=== PATIENT | female | born 1965 | race Caucasian/White ===

== ENCOUNTER 2020-10-21 21:12 | Emergency (ER) | payer BC, SELFPAY ==
--- NOTE | ~2020-10-21 | XR_ITS ---
EXAMINATION: XR SHOULDER, RIGHT CLINICAL INFORMATION: Fall COMPARISON: None TECHNIQUE: Three views of the right shoulder. FINDINGS: No acute fracture or dislocation. Previous partial distal clavicular resection/Pedro Pablo procedure suspected. Unremarkable glenohumeral joint. Soft tissues unremarkable. XR/XR shoulder RT min 2V IMPRESSION: No acute findings
--- NOTE | ~2020-10-21 | XR_ITS ---
EXAMINATION: XR RIGHT HAND: 3 VIEWS CLINICAL INFORMATION: Fall COMPARISON: None TECHNIQUE: PA, oblique and lateral views FINDINGS: No acute fracture or dislocation. Joint spaces and articular surfaces are maintained. Mild degenerative changes of the first CMC. Soft tissues unremarkable without evidence of radiopaque foreign body. XR/XR hand wrist RT IMPRESSION: No acute fracture or dislocation.
--- NOTE | ~2020-10-21 | CT_ITS ---
EXAMINATION: CT HEAD WITHOUT CONTRAST CT CERVICAL SPINE WITHOUT CONTRAST CLINICAL INFORMATION: Fall. COMPARISON: None. TECHNIQUE: Imaging was performed from the skull base to vertex without intravenous administration of contrast. In addition, helical noncontrast CT imaging was acquired through the cervical spine and source images were reviewed along with axial reconstructions and sagittal and coronal MPRs. [This CT examination was performed using dose optimization techniques as appropriate, variously including the following: *Automated exposure control *Adjustment of mA and/or kV according to patient size (this includes techniques or standardized protocols for targeted exams where dose is matched to indication/reason for exam; i.e. extremities or head) *Use of iterative reconstruction technique] DLP: 859 mGy-cm FINDINGS: HEAD: No intracranial mass, hemorrhage, or midline shift is visualized. The ventricles and sulci are proportional. No extra-axial collections are identified. The paranasal sinuses and mastoid air cells are well aerated. CERVICAL SPINE: There is no evidence of acute cervical spine fracture. Vertebral bodies remain normal in height. Cervical vertebrae have normal alignment. Status post fusion with anterior orthopedic plate and screw C5-C7. 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 No pre- or paravertebral soft tissue abnormality is identified. Limited assessment of the lung apices is unremarkable. CT/CT head/brain wo con IMPRESSION: 1. No acute intracranial pathology. 2. No CT evidence of acute cervical spine fracture or traumatic subluxation
--- NOTE | ~2020-10-21 | CT_ITS ---
EXAMINATION: CT HEAD WITHOUT CONTRAST CT CERVICAL SPINE WITHOUT CONTRAST CLINICAL INFORMATION: Fall. COMPARISON: None. TECHNIQUE: Imaging was performed from the skull base to vertex without intravenous administration of contrast. In addition, helical noncontrast CT imaging was acquired through the cervical spine and source images were reviewed along with axial reconstructions and sagittal and coronal MPRs. [This CT examination was performed using dose optimization techniques as appropriate, variously including the following: *Automated exposure control *Adjustment of mA and/or kV according to patient size (this includes techniques or standardized protocols for targeted exams where dose is matched to indication/reason for exam; i.e. extremities or head) *Use of iterative reconstruction technique] DLP: 859 mGy-cm FINDINGS: HEAD: No intracranial mass, hemorrhage, or midline shift is visualized. The ventricles and sulci are proportional. No extra-axial collections are identified. The paranasal sinuses and mastoid air cells are well aerated. CERVICAL SPINE: There is no evidence of acute cervical spine fracture. Vertebral bodies remain normal in height. Cervical vertebrae have normal alignment. Status post fusion with anterior orthopedic plate and screw C5-C7. 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 No pre- or paravertebral soft tissue abnormality is identified. Limited assessment of the lung apices is unremarkable. CT/CT cervical spine wo con IMPRESSION: 1. No acute intracranial pathology. 2. No CT evidence of acute cervical spine fracture or traumatic subluxation
[2020-10-21 21:48] VITALS: BP 151/109; PULSE 80; RESP 20; O2SAT 98; BMI 25.4
[2020-10-22 00:49] VITALS: BP 133/72; PULSE 74; RESP 15; TEMP 36.4; O2SAT 100
--- NOTE | 2020-10-22 00:57 | ED.GENADULT ---
HPI - General Adult General Chief complaint: Fall <Martha Doty MD - Last Filed: 10/22/20 07:20> Stated complaint: Fall <Martha Doty MD - Last Filed: 10/22/20 07:20> Time Seen by Provider: 10/22/20 00:57 <Martha Doty MD - Last Filed: 10/22/20 07:20> Source: patient <Martha Doty MD - Last Filed: 10/22/20 07:20> Mode of arrival: ambulatory <Martha Doty MD - Last Filed: 10/22/20 07:20> Limitations: no limitations <Martha Doty MD - Last Filed: 10/22/20 07:20> History of Present Illness HPI narrative: Patient comes emergency room complaining <Martha Doty MD - Last Filed: 10/22/20 07:20> Related Data Home medications: Previous Rx's Medication Instructions Recorded acetaminophen 500 mg capsule 500 mg PO Q6H PRN #14 cap 10/22/20 cyclobenzaprine 10 mg tablet 10 mg PO TID PRN #7 tab 10/22/20 <Martha Doty MD - Last Filed: 10/22/20 07:20> Allergies/adverse reactions: Allergies Allergy/AdvReac Type Severity Reaction Status Date / Time ampicillin [Ampicillin] Allergy Severe ANAPHYLAXIS Unverified 11/05/19 14:50 TO TOTACILLIN azithromycin [From ZITHROMAX] Allergy Severe ANAPHYLAXIS Unverified 11/05/19 14:50 erythromycin base Allergy Unknown UNKNOWN Unverified 11/05/19 14:50 [ERYTHROMYCIN BASE] ciprofloxacin [From CIPRO] AdvReac Unknown NAUSEA Unverified 11/05/19 14:50 From CEFTIN Allergy Severe SWOLLEN Uncoded 11/05/19 14:50 TONGUE From DEMEROL Allergy Severe ANAPHYLAXIS Uncoded 11/05/19 14:50 From KEFLEX Allergy Severe SWOLLEN Uncoded 11/05/19 14:50 TONGUE From CIPRO AdvReac Unknown NAUSEA Uncoded 11/05/19 14:50 From REGLAN AdvReac Unknown LOCK JAW Uncoded 11/05/19 14:50 <Martha Doty MD - Last Filed: 10/22/20 07:20> PMFSH Social History Social History: Social History Advance Directives: No Advance Directives Information Provided: No Patient : No <Martha Doty MD - Last Filed: 10/22/20 07:20> Physical Exam Vital Signs: Vital Signs: Last Vital Signs Temp 97.8 F 10/22/20 04:37 Pulse 65 10/22/20 04:37 Resp 16 10/22/20 04:37 BP 138/75 10/22/20 04:37 Pulse Ox 98 10/22/20 04:37 Body Mass Index 25.4 <Martha Doty MD - Last Filed: 10/22/20 07:20> Vital Signs: Last Vital Signs Temp 97.8 F 10/22/20 04:37 Pulse 65 10/22/20 04:37 Resp 16 10/22/20 04:37 BP 138/75 10/22/20 04:37 Pulse Ox 98 10/22/20 04:37 Body Mass Index 25.4 <LINO Rodrigues-KIERSTEN - Last Filed: 10/23/20 21:04> Discharge Plan Discharge Clinical Impression: Fall, Multiple contusions <Martha Doty MD - Last Filed: 10/22/20 07:20> Patient Disposition: Home, Self-Care <Martha Doty MD - Last Filed: 10/22/20 07:20> Instructions: Musculoskeletal Pain (ED) <Martha Doty MD - Last Filed: 10/22/20 07:20> Additional Instructions: Please follow-up with your primary care physician tomorrow. If you have any worsening or new symptoms, please return to the emergency room or call 911 <Martha Doty MD - Last Filed: 10/22/20 07:20> Prescriptions: New cyclobenzaprine 10 mg tablet 10 mg PO TID PRN (Reason: muscle spasm) Qty: 7 RF: 0 acetaminophen 500 mg capsule 500 mg PO Q6H PRN (Reason: pain) Qty: 14 RF: 0 <Martha Doty MD - Last Filed: 10/22/20 07:20> Interventions: ED Discharge Assessment Last Done: 10/22/20 05:55 <Martha Doty MD - Last Filed: 10/22/20 07:20> Discharge Date/Time: 10/22/20 06:02 <Martha Doty MD - Last Filed: 10/22/20 07:20>
--- NOTE | 2020-10-22 02:05 | PC.NURSE ---
Notified provider pt is awaiting to be seen.
--- NOTE | 2020-10-22 02:27 | PC.NURSE ---
pt oob to bathroom.
[2020-10-22 02:32] VITALS: BP 128/60; PULSE 81; RESP 24; TEMP 36.7; O2SAT 100
--- NOTE | 2020-10-22 03:07 | PC.NURSE ---
PT UPSET OVER LONG WAIT TIME AND NOT HAVING SEEN PROVIDER. RN AT BEDSIDE, OFFERED ICE & TYLENOL. PT AGREEABLE TO THIS PLAN. MD AWARE OF XRAY RESULTS, AND PT CONCERNS.
[2020-10-22] MEDS: Acetaminophen 325 MG TABLET 650 MG PO (03:10)
--- NOTE | 2020-10-22 03:14 | PC.NURSE ---
pt given ice back and medicated per apr.
--- NOTE | 2020-10-22 03:23 | ED.FALL ---
HPI - Fall General Chief Complaint: Fall Stated Complaint: Fall Time Seen by Provider: 10/22/20 00:57 Source: patient Mode of arrival: ambulatory Limitations: no limitations History of Present Illness HPI Narrative: Patient comes to the emergency room complaining of a fall. Earlier today she was walking out of the vet's office with her dog, walking down the ramp. Patient states it was very slippery and she landed on her right side. Patient states she might have hit her head, complaining of acute on chronic neck pain, complaining of new right shoulder pain, new right wrist pain. Patient denies loss of consciousness, patient denies being on blood thinners Related Data Previous Rx's Medication Instructions Recorded acetaminophen 500 mg capsule 500 mg PO Q6H PRN #14 cap 10/22/20 cyclobenzaprine 10 mg tablet 10 mg PO TID PRN #7 tab 10/22/20 Allergies Allergy/AdvReac Type Severity Reaction Status Date / Time ampicillin [Ampicillin] Allergy Severe ANAPHYLAXIS Unverified 11/05/19 14:50 TO TOTACILLIN azithromycin [From ZITHROMAX] Allergy Severe ANAPHYLAXIS Unverified 11/05/19 14:50 erythromycin base Allergy Unknown UNKNOWN Unverified 11/05/19 14:50 [ERYTHROMYCIN BASE] ciprofloxacin [From CIPRO] AdvReac Unknown NAUSEA Unverified 11/05/19 14:50 From CEFTIN Allergy Severe SWOLLEN Uncoded 11/05/19 14:50 TONGUE From DEMEROL Allergy Severe ANAPHYLAXIS Uncoded 11/05/19 14:50 From KEFLEX Allergy Severe SWOLLEN Uncoded 11/05/19 14:50 TONGUE From CIPRO AdvReac Unknown NAUSEA Uncoded 11/05/19 14:50 From REGLAN AdvReac Unknown LOCK JAW Uncoded 11/05/19 14:50 Review of Systems Review of Systems: Constitutional : No Weight loss, No Fever, No Chills, No Night Sweats, No Fatigue, No Malaise ENT/Mouth : No Hearing loss, No Ear Pain, No Nasal Congestion, No Sinus Pain, No Hoarseness, No sore throat, No Rhinorrhea, No Swallowing Difficulty Eyes: No Eye Pain, No Swelling, No Redness, No Foreign Body, No Discharge, No Vision Changes Cardiovascular : No Chest Pain, No SOB, No Dyspnea on Exertion, No Orthopnea, No Edema, No Palpitations Respiratory : No Cough, No Sputum, No Wheezing, No Smoke Exposure, No Dyspnea Gastrointestinal : No Nausea, No Vomiting, No Diarrhea, No Constipation, No abdominal Pain, No Hematochezia, No Melena Genitourinary : no irregular bleeding, No Dysuria, No Urinary Frequency, No Hematuria, No Urinary Incontinence, No Urgency, No Flank Pain, No Urinary Flow Changes, No Hesitancy Musculoskeletal : Complaining of right shoulder, right wrist pain, complaining acute on chronic neck pain, No Myalgias, No Joint Swelling Skin : No Skin Lesions, No rash Neuro : No Weakness, No Numbness, No Paresthesias, No Loss of Consciousness, No Dizziness, No Headache Psych : No Anxiety/Panic, No Depression, No SI/HI/AH/VH, No Social Issues, Heme/Lymph: No Bruising, No Bleeding,No Lymphadenopathy Endocrine : No Polyuria, No Polydipsia, No Temperature Intolerance [facility] Social History Social History Advance Directives: No Advance Directives Information Provided: No Patient : No Physical Exam Vital Signs: Vital Signs: Last Vital Signs Temp 97.8 F 10/22/20 04:37 Pulse 65 10/22/20 04:37 Resp 16 10/22/20 04:37 BP 138/75 10/22/20 04:37 Pulse Ox 98 10/22/20 04:37 Body Mass Index 25.4 Const: Other: Appearance: Alert. Oriented X3. No acute distress. Eyes: Pupils equal, round and reactive to light. ENT: Pharynx normal. Neck: Normal inspection. Pain to palpation especially over the right side, no midline tenderness, no palpable above CVS: Normal heart rate and rhythm. Pulses normal. Normal S1 and S2 Respiratory: No respiratory distress. Breath sounds normal. No Wheezing. No rales Abdomen: Soft and nontender. No rigidity. No distention. good BS x4 Skin: Skin warm and dry. Normal skin color. Normal skin turgor. Extremities: Ecchymosis over the right shoulder, no obvious effusion or deformity. Pain to palpation over the entire shoulder joint. Pain to palpation over the wrist, especially ulnar aspect, no elbow pain. Neuro: Oriented X 3. No motor deficit. No sensory deficit. Moving all extermities. No slurred speech. Course Course Course Narrative: Patient's CT scan of head and neck showed no acute abnormalities, x-ray negative MDM - Fall Imaging Data Head and neck CT: Radiologist's impression: [address] [address] [address] Scan Report Signed Patient: Darlin Villegas MR#: [id number] : 1965 Acct:[id number] Age/Sex: 54 / F ADM Date: 10/21/20 Loc: HO.ED Attending Dr: Ordering Physician: Martha Doty MD Date of Service: 10/22/20 Procedure(s): CT cervical spine wo con Accession Number(s): [id number] cc: Martha Doty MD~ EXAMINATION: CT HEAD WITHOUT CONTRAST CT CERVICAL SPINE WITHOUT CONTRAST CLINICAL INFORMATION: Fall.? COMPARISON: None. TECHNIQUE: Imaging was performed from the skull base to vertex without intravenous administration of contrast. In addition, helical noncontrast CT imaging was acquired through the cervical spine and source images were reviewed along with axial reconstructions and sagittal and coronal MPRs. [This CT examination was performed using dose optimization techniques as appropriate, variously including the following: *Automated exposure control *Adjustment of mA and/or kV according to patient size (this includes techniques or standardized protocols for targeted exams where dose is matched to indication/reason for exam; i.e. extremities or head) *Use of iterative reconstruction technique] DLP: 859 mGy-cm FINDINGS: HEAD: No intracranial mass, hemorrhage, or midline shift is visualized. The ventricles and sulci are proportional. No extra-axial collections are identified. The paranasal sinuses and mastoid air cells are well aerated. CERVICAL SPINE: There is no evidence of acute cervical spine fracture. Vertebral bodies remain normal in height. Cervical vertebrae have normal alignment. Status post fusion with anterior orthopedic plate and screw C5-C7. 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 No pre- or paravertebral soft tissue abnormality is identified. Limited assessment of the lung apices is unremarkable. CT/CT cervical spine wo con IMPRESSION: 1. No acute intracranial pathology. 2. No CT evidence of acute cervical spine fracture or traumatic subluxation Shoulder, hand, wrist x-ray: Radiologist's impression: No acute fracture or dislocation. Previous partial distal clavicular resection/Pedro Pablo procedure suspected. Unremarkable glenohumeral joint. Soft tissues unremarkable. XR/XR shoulder RT min 2V IMPRESSION: No acute findings No acute fracture or dislocation. Joint spaces and articular surfaces are maintained. Mild degenerative changes of the first CMC. Soft tissues unremarkable without evidence of radiopaque foreign body.? XR/XR hand wrist RT IMPRESSION: No acute fracture or dislocation.? ECG Data Attestation: I personally reviewed and interpreted this ECG as follows: Discharge Plan Discharge Clinical Impression: Fall, Multiple contusions Patient Disposition: Home, Self-Care Instructions: Musculoskeletal Pain (ED) Additional Instructions: Please follow-up with your primary care physician tomorrow. If you have any worsening or new symptoms, please return to the emergency room or call 911 Prescriptions: New cyclobenzaprine 10 mg tablet 10 mg PO TID PRN (Reason: muscle spasm) Qty: 7 RF: 0 acetaminophen 500 mg capsule 500 mg PO Q6H PRN (Reason: pain) Qty: 14 RF: 0
[2020-10-22 04:37] VITALS: BP 138/75; PULSE 65; RESP 16; TEMP 36.6; O2SAT 98
--- NOTE | 2020-10-22 05:50 | PC.NURSE ---
pt requesting to be discharge, provider is aware.
== END 2020-10-22 06:02 | disposition home or self-care (01) ==
PROVIDERS: Emergency Provider Emergency Medicine; PCP Internal Medicine
DX: S40.011A Contusion of right shoulder, initial encounter (principal); W10.2XXA Fall (on)(from) incline, initial encounter; Y93.K1 Activity, walking an animal; Y92.238 Other place in hospital as the place of occurrence of the external cause; Y99.9 Unspecified external cause status; M25.531 Pain in right wrist; G89.29 Other chronic pain; M54.2 Cervicalgia
CPT/HCPCS: 29130; 70450; 72125; 73030; 73110; 73130; 99284

== ENCOUNTER 2021-08-07 17:15 | Emergency (ER) | payer BC, SELFPAY ==
--- NOTE | ~2021-08-07 | CT_ITS ---
EXAMINATION: CT ABDOMEN AND PELVIS WITHOUT CONTRAST CLINICAL INFORMATION: Lower abdominal pain with history of diverticulitis. COMPARISON: CT abdomen pelvis 02/16/2012. TECHNIQUE: Multidetector volumetric imaging was performed from the superior aspect of the liver through the pubic symphysis. Sagittal and coronal reformatted images were obtained on the technologist's workstation. This CT examination was performed using dose optimization techniques as appropriate, variously including the following: *Automated exposure control *Adjustment of mA and/or kV according to patient size (this includes techniques or standardized protocols for targeted exams where dose is matched to indication/reason for exam; i.e. extremities or head) *Use of iterative reconstruction technique DLP: 597 mGy-cm FINDINGS: LUNG BASES: The visualized lung bases are unremarkable. LIVER, GALLBLADDER, AND BILIARY TREE: The liver is normal in size, shape, and attenuation. No focal hepatic lesion or biliary ductal dilatation is present. The gallbladder is unremarkable with no evidence of radiopaque gallstones, gallbladder wall thickening, or obvious pericholecystic inflammatory changes. PANCREAS: Unremarkable. SPLEEN: Unremarkable. ADRENAL GLANDS: Unremarkable. KIDNEYS AND URETERS: The kidneys are normal in size, shape, and attenuation. No hydronephrosis, hydroureter, or calculi seen. No perinephric stranding. BLADDER: Unremarkable. GASTROINTESTINAL TRACT: There is scattered stool and gas seen throughout the colon without significant distention. There are surgical jignesh in the right lower quadrant from previous intervention. Appendix is likely surgically absent. The small bowel loops are normal caliber. The stomach is nondistended. There is an extrarenal right kidney pelvis. ABDOMINAL WALL: No significant hernia is appreciated. LYMPH NODES: Normal. VASCULAR: Unremarkable. PELVIC VISCERA: The uterus is anteverted and appears unremarkable. There is no adnexal mass or free fluid seen. OSSEOUS STRUCTURES: There are degenerative disc changes L2-L3, L3-for L4-L5 disc levels. No aggressive lytic or sclerotic process seen. CT/CT abdomen pelvis wo con IMPRESSION: No acute intra-abdominal process seen. There are postsurgical changes in right lower quadrant. Appendix is not seen likely surgically removed. No free air or inflammatory process seen. Fleischner guidelines were followed.
[2021-08-07 17:25] VITALS: BP 136/70; PULSE 80; RESP 20; TEMP 36.5; O2SAT 98; BMI 25.3
[2021-08-07 17:38] LABS: MANUAL DIFF FLAG NO
[2021-08-07 17:41] LABS: Basophils Percent Auto 0.4 % (0-2); Eosinophils Absolute Auto 0.1 X10*3/uL (0.0-0.4); Eosinophils Percent Auto 1.7 % (0-4); Hematocrit 37.4 % (37.0-47.0); Hemoglobin 12.5 g/dl (12.0-16.0); Imm Gran Abs Auto 0.01 X10*3/uL (0.00-0.03); Imm Gran Pct Auto 0.1 % (0.0-0.4); Lymphocytes Absolute Auto 2.4 X10*3/uL (1.2-4.9); Lymphocytes Percent Auto 33.5 % (20-40); Mean Corpuscular HGB Conc 33.4 g/dl (31.0-35.0); Mean Corpuscular Hemoglobin 30.9 pg (27.0-33.0); Mean Corpuscular Volume 92.6 fL (80.0-98.0); Mean Platelet Volume 9.5 fL (9.4-12.3); Monocytes Absolute Auto 0.5 X10*3/uL (0.1-1.2); Monocytes Percent Auto 7.3 % (2-11); Neutrophils Absolute Auto 4.1 x10*3/uL (2.0-8.3); Platelet Count 270 X10*3/uL (160-400); Red Blood Count 4.04 X10*6/uL (4.20-5.50); Red Cell Distribution Width 11.9 % (11.0-16.0); White Blood Count 7.3 X10*3/uL (4.8-10.8)
[2021-08-07 17:51] LABS: Anion Gap 12 (12-20); Blood Urea Nitrogen 11 mg/dL (9-16); Calcium 8.9 mg/dL (8.4-10.2); Carbon Dioxide 26 mmol/L (22-29); Chloride 104 mmol/L (96-108); Creatinine Clr Calc Pharmacy 78.4; Estimated Glomerular Filt Rate > 60; Glucose Random 105 mg/dL (60-115); Potassium 4.2 mmol/L (3.3-5.1); Sodium 138 mmol/L (135-145)
[2021-08-07 17:54] LABS: Appearance Urine CLEAR; Color Urine ORANGE; UACC CULT YES
[2021-08-07 18:01] LABS: Bacteria Urine TRACE /LPF; Squamous Epithelial Cell Urine 1+ /LPF
[2021-08-07 19:55] VITALS: BP 136/74; PULSE 78; RESP 20; TEMP 36.4; O2SAT 96
--- NOTE | 2021-08-07 20:03 | ED_ITS ---
HPI - Abdominal Pain General Chief Complaint: Abdominal Pain Stated Complaint: Lower R Side Pain Time Seen by Provider: 08/07/21 20:03 Source: patient Mode of arrival: ambulatory Limitations: no limitations History of Present Illness HPI narrative: Patient history of UTI about 2 weeks ago took antibiotics got better was doing fine since yesterday noticed pain in the suprapubic area radiated to the right lower quadrant has nausea and vomited 1 time no diarrhea feel very uncomfortable when arrived to the ER also has slight dysuria no frequency no fever no chills Related Data Home Medications Medication Instructions Recorded Confirmed carisoprodol 350 mg tablet 350 mg PO TID PRN 06/27/21 lidocaine 5 % topical patch 0 patch topical 06/27/21 loratadine 10 mg tablet 10 mg PO DAILY 06/27/21 morphine 30 mg tablet,extended 30 mg PO TID PRN 06/27/21 release oxycodone 15 mg tablet 15 mg PO Q6H PRN pain 06/27/21 pantoprazole 40 mg tablet,delayed 40 mg PO DAILY 06/27/21 release pregabalin 75 mg capsule 75 mg PO BID 06/27/21 promethazine 25 mg tablet 25 mg PO TID PRN 06/27/21 Previous Rx's Medication Instructions Recorded acetaminophen 500 mg capsule 500 mg PO Q6H PRN pain #14 caps 10/22/20 cyclobenzaprine 10 mg tablet 10 mg PO TID PRN muscle spasm #7 10/22/20 tabs sulfamethoxazole 800 1 tab PO BID 5 days #10 tabs 06/27/21 mg-trimethoprim 160 mg tablet (Bactrim DS) cefuroxime axetil 500 mg tablet 500 mg PO BID 7 days #14 tabs 08/07/21 phenazopyridine 200 mg tablet 200 mg PO TID 2 days #6 tabs 08/07/21 (Pyridium) Allergies Allergy/AdvReac Type Severity Reaction Status Date / Time ampicillin [Ampicillin] Allergy Severe ANAPHYLAXIS Unverified 08/07/21 16:12 TO TOTACILLIN azithromycin [From ZITHROMAX] Allergy Severe ANAPHYLAXIS Unverified 08/07/21 16:12 erythromycin base Allergy Unknown UNKNOWN Unverified 08/07/21 16:12 [ERYTHROMYCIN BASE] clindamycin Allergy Hives Verified 08/07/21 17:27 ciprofloxacin [From CIPRO] AdvReac Unknown NAUSEA Unverified 08/07/21 16:12 From DEMEROL Allergy Severe ANAPHYLAXIS Uncoded 08/07/21 16:12 From CIPRO AdvReac Unknown NAUSEA Uncoded 08/07/21 16:12 From REGLAN AdvReac Unknown LOCK JAW Uncoded 08/07/21 16:12 Review of Systems Review of Systems Yes all other systems are reviewed and are negative [facility] Social History Social History Advance Directives: No Advance Directives Information Provided: No Physical Exam ED Vital Signs: Vital Signs - 24 hr 08/07/21 17:25 08/07/21 19:55 08/07/21 21:45 Temperature 97.7 F 97.6 F 97.6 F Pulse Rate 80 78 70 Respiratory Rate 20 20 20 Blood Pressure 136/70 136/74 157/52 H Pulse Oximetry 98 96 100 Oxygen Delivery Method Room Air Room Air Room Air BMI result Body Mass Index 25.3 Appearance: Alert. Oriented X3. No acute distress. ENT: Pharynx normal. Oral Mucosa moist Neck: Normal inspection. Neck supple. CVS: Normal heart rate and rhythm. Pulses normal. Respiratory: No respiratory distress. Equal air entry bilateral, no wheezing/rales/rhonchi Abdomen: Soft , tender to touch suprapubic area no rebound tenderness or guarding Bowel sounds are present, no mass palpable, no CVA tenderness Skin: Skin warm and dry. Normal skin color. Normal skin turgor. Extremities: No lower extremity edema. No calf tenderness Neuro: Oriented X 3. No motor deficit. MDM - Abdominal Pain MDM Narrative Medical decision making narrative: Patient with some mild urinary tract infection but significant pelvic pain no vaginal discharge CT scan abdomen is negative for anything acute discharge patient home on Ceftin Lab Data Attestation: I reviewed the patient's lab results. Result diagrams: 08/07/21 17:31 08/07/21 17:31 Labs: Lab Results 08/07/21 08/07/21 08/07/21 Range/Units 17:31 17:31 17:39 WBC 7.3 (4.8-10.8) X10*3/uL RBC 4.04 L (4.20-5.50) X10*6/uL Hgb 12.5 (12.0-16.0) g/dl Hct 37.4 (37.0-47.0) % MCV 92.6 (80.0-98.0) fL MCH 30.9 (27.0-33.0) pg MCHC 33.4 (31.0-35.0) g/dl RDW 11.9 (11.0-16.0) % Plt Count 270 (160-400) X10*3/uL MPV 9.5 (9.4-12.3) fL Immature Gran % (Auto) 0.1 (0.0-0.4) % Neut % (Auto) 57.0 (45-73) % Lymph % (Auto) 33.5 (20-40) % [place] % (Auto) 7.3 (2-11) % Eos % (Auto) 1.7 (0-4) % Baso % (Auto) 0.4 (0-2) % Lymph # (Auto) 2.4 (1.2-4.9) X10*3/uL [place] # (Auto) 0.5 (0.1-1.2) X10*3/uL Eos # (Auto) 0.1 (0.0-0.4) X10*3/uL Baso # (Auto) 0.0 (0.0-0.2) X10*3/uL Abs Immat Gran (auto) 0.01 (0.00-0.03) X10*3/uL Absolute Neuts (auto) 4.1 (2.0-8.3) x10*3/uL Absolute Nucleated RBC 0.000 (0.0-0.012) X10*3/uL Nucleated RBC % (auto) 0.0 (0.0-0.2) /100WBC Sodium 138 (135-145) mmol/L Potassium 4.2 (3.3-5.1) mmol/L Chloride 104 (96-108) mmol/L Carbon Dioxide 26 (22-29) mmol/L Anion Gap 12 (12-20) BUN 11 (9-16) mg/dL Creatinine 0.82 (0.5-1.4) mg/dL Estim Creat Clear Calc 78.4 Estimated GFR > 60 Random Glucose 105 (60-115) mg/dL Lactic Acid (0.5-2.0) mmol/L Calcium 8.9 (8.4-10.2) mg/dL Urine Color ORANGE A Urine Appearance CLEAR Urine pH TNP Ur Specific [place] TNP Urine Protein TNP Urine Glucose (UA) TNP Urine Ketones TNP Urine Blood TNP Urine Nitrite TNP Ur Leukocyte Esterase TNP Urine RBC 1-4 (0) /HPF Urine WBC 5-9 H (0-4) /HPF Ur Squamous Epith Cells 1+ /LPF Urine Bacteria TRACE /LPF 08/07/21 Range/Units 20:36 WBC (4.8-10.8) X10*3/uL RBC (4.20-5.50) X10*6/uL Hgb (12.0-16.0) g/dl Hct (37.0-47.0) % MCV (80.0-98.0) fL MCH (27.0-33.0) pg MCHC (31.0-35.0) g/dl RDW (11.0-16.0) % Plt Count (160-400) X10*3/uL MPV (9.4-12.3) fL Immature Gran % (Auto) (0.0-0.4) % Neut % (Auto) (45-73) % Lymph % (Auto) (20-40) % [place] % (Auto) (2-11) % Eos % (Auto) (0-4) % Baso % (Auto) (0-2) % Lymph # (Auto) (1.2-4.9) X10*3/uL [place] # (Auto) (0.1-1.2) X10*3/uL Eos # (Auto) (0.0-0.4) X10*3/uL Baso # (Auto) (0.0-0.2) X10*3/uL Abs Immat Gran (auto) (0.00-0.03) X10*3/uL Absolute Neuts (auto) (2.0-8.3) x10*3/uL Absolute Nucleated RBC (0.0-0.012) X10*3/uL Nucleated RBC % (auto) (0.0-0.2) /100WBC Sodium (135-145) mmol/L Potassium (3.3-5.1) mmol/L Chloride (96-108) mmol/L Carbon Dioxide (22-29) mmol/L Anion Gap (12-20) BUN (9-16) mg/dL Creatinine (0.5-1.4) mg/dL Estim Creat Clear Calc Estimated GFR Random Glucose (60-115) mg/dL Lactic Acid 0.4 L (0.5-2.0) mmol/L Calcium (8.4-10.2) mg/dL Urine Color Urine Appearance Urine pH Ur Specific [place] Urine Protein Urine Glucose (UA) Urine Ketones Urine Blood Urine Nitrite Ur Leukocyte Esterase Urine RBC (0) /HPF Urine WBC (0-4) /HPF Ur Squamous Epith Cells /LPF Urine Bacteria /LPF Discharge Plan Discharge Clinical Impression: Urinary tract infection Patient Disposition: Home, Self-Care Instructions: Urinary Tract Infection in Women (ED) Additional Instructions: Drink plenty of fluid Antibiotic as advised Follow with PCP if not Prescriptions: New cefuroxime axetil 500 mg tablet 500 mg PO BID 7 Days Qty: 14 0RF phenazopyridine [Pyridium] 200 mg tablet 200 mg PO TID 2 Days Qty: 6 0RF No Action cyclobenzaprine 10 mg tablet 10 mg PO TID PRN (Reason: muscle spasm) Qty: 7 0RF acetaminophen 500 mg capsule 500 mg PO Q6H PRN (Reason: pain) Qty: 14 0RF morphine 30 mg tablet extended release 30 mg PO TID PRN pregabalin 75 mg capsule 75 mg PO BID oxycodone 15 mg tablet 15 mg PO Q6H PRN (Reason: pain) carisoprodol 350 mg tablet 350 mg PO TID PRN promethazine 25 mg tablet 25 mg PO TID PRN lidocaine 5 % adhesive patch,medicated 0 patch topical loratadine 10 mg tablet 10 mg PO DAILY pantoprazole 40 mg tablet,delayed release (DR/EC) 40 mg PO DAILY sulfamethoxazole-trimethoprim [Bactrim DS] 800-160 mg tablet 1 tab PO BID 5 Days Qty: 10 0RF
[2021-08-07] MEDS: 0.9 % Sodium Chloride 1,000 ML 999 ML IV (20:41)
[2021-08-07] MEDS: ondansetron HCL 4 MG/2 ML VIAL IVPUSH (20:41)
[2021-08-07] MEDS: Morphine Sulfate 4 MG/ML CARTRIDGE IVPUSH (20:41)
[2021-08-07 20:57] LABS: Lactic Acid 0.4 mmol/L (0.5-2.0)
[2021-08-07 21:45] VITALS: BP 157/52; PULSE 70; RESP 20; TEMP 36.4; O2SAT 100
[2021-08-07] MEDS: cefTRIAXone sodium 1 GM in 0.9 % Sodium Chloride 50 ML IV (22:06)
[2021-08-07] MEDS: Ketorolac Tromethamine 30 MG/ML VIAL IVPUSH (23:00)
== END 2021-08-08 00:16 | disposition home or self-care (01) ==
PROVIDERS: Emergency Provider Internal Medicine; PCP Internal Medicine
DX: N39.0 Urinary tract infection, site not specified (principal); R10.31 Right lower quadrant pain; Z79.899 Other long term (current) drug therapy
CPT/HCPCS: 36415; 74176; 80048; 81001; 83605; 85025; 87086; 96365; 96366; 96375; 99284; J0696; J1885; J2270; J2405

== ENCOUNTER 2022-07-03 10:52 | Outpatient (REF) | payer BC, SELFPAY ==
--- NOTE | ~2022-07-03 | XR_ITS ---
EXAMINATION: XR CHEST CLINICAL INFORMATION: Cough COMPARISON: None available. TECHNIQUE: 2 views of the chest were obtained. FINDINGS: No significant abnormality is noted involving the heart, lungs, mediastinum, bony thorax or soft tissues. Degenerative changes of the thoracic spine curvature to the left. Postsurgical changes to the cervical spine. XR/XR chest 2V IMPRESSION: No evidence for acute disease in the chest.
[2022-07-03 15:26] LABS: Influenza A PCR NEGATIVE (Negative); Influenza B PCR NEGATIVE (Negative); Resp Syncy Virus RNA Qual PCR NEGATIVE (Negative); SARS COV2 PCR INHOUSE NEGATIVE (Negative)
== END 2022-07-03 10:53 | disposition home or self-care (01) ==
LOC: HO.HMGCX 10:52
PROVIDERS: PCP Internal Medicine; Visit Provider Physician Assistant
DX: Z20.822 Contact with and (suspected) exposure to COVID-19 (principal); R05.9 Cough, unspecified; R06.89 Other abnormalities of breathing; B34.9 Viral infection, unspecified
CPT/HCPCS: 0241U; 71046

== ENCOUNTER 2024-01-02 08:14 | Outpatient (AMB) | payer BC, SELFPAY ==
[2024-01-02 08:27] VITALS: BP 122/72; PULSE 72; TEMP 36.7; O2SAT 98
--- NOTE | 2024-01-02 08:27 | AM.OFFWIN_ITS ---
Intake Vital Signs 01/02/24 08:27 Height 5 ft 6 in BP 122/72 Blood Pressure Location Rt brachial Position Sitting Pulse 72 Pulse Source Pulse Oximeter Temp 98.1 F Temp Source Oral Pulse Oximetry (%) 98 Intake Visit Reasons: EP-sinisus infection, cough, chest congestion Intake Note: pt is here for sinus infecton, cough, and chest congestion, and a headache Patient Tobacco Use Status: Never used Tobacco Allergies ampicillin [Ampicillin] Allergy (Severe, Verified 01/02/24 08:27) ANAPHYLAXIS TO TOTACILLIN azithromycin [From ZITHROMAX] Allergy (Severe, Verified 01/02/24 08:27) ANAPHYLAXIS erythromycin base [ERYTHROMYCIN BASE] Allergy (Unknown, Verified 01/02/24 08:27) UNKNOWN clindamycin Allergy (Verified 01/02/24 08:27) Hives ciprofloxacin [From CIPRO] Adverse Reaction (Unknown, Verified 01/02/24 08:27) NAUSEA From DEMEROL Allergy (Severe, Uncoded 08/07/21 16:12) ANAPHYLAXIS From CIPRO Adverse Reaction (Unknown, Uncoded 08/07/21 16:12) NAUSEA From REGLAN Adverse Reaction (Unknown, Uncoded 08/07/21 16:12) LOCK JAW Do you need a note to return to daycare/school/sports/work: No HPI HPI Comments History of Present Illness Details Patient is a 58-year-old female complaining of 4 days of a headache, a productive cough with green sputum, head congestion, sinus pain, right ear pain, shortness of breath and a fever with a T-max of 100.4 degrees. She denies any wheezing. She did not test for COVID, she tells me she does have a history of asthma is not on a maintenance inhaler but does use albuterol nebulizers and has some at home. She tells me she does not have a albuterol inhaler at home. She tells me she has tried taking extra-strength Tylenol Mucinex and Advil cold and sinus without much relief in her symptoms. She tells me she just finished a 5 day prednisone burst of 50 mg daily for her back spasms 2 days ago. [facility] Social History Patient Tobacco Use Status: Never used Tobacco Review of Systems Const All systems reviewed & are unremarkable except as noted in HPI and below Physical Exam Vital Signs: Last Vital Signs Temp 98.1 F 01/02/24 08:27 Pulse 72 01/02/24 08:27 BP 122/72 01/02/24 08:27 Pulse Ox 98 01/02/24 08:27 Const General: cooperative, healthy appearing, comfortable and no acute distress Orientation/consciousness: patient oriented x3 Limitations: no limitations HEENT Head: Yes normal to inspection Ears: hearing grossly normal bilaterally, external ears normal and TM's normal bilaterally General nose exam: Normal external nose present, Normal nares present and No nasal discharge present Face and sinus: Yes normal facial exam and Yes sinuses nontender Mouth: Normal oral and palatal mucosa present and moist mucous membranes Throat: Yes tonsils normal, Yes uvula midline and Yes posterior oropharynx abnormal (Erythema) Eyes General: appearance normal, both eyes and all related structures Neck Neck: Yes normal visual inspection Resp Effort & Inspection: normal respiratory effort, able to speak in complete sentences, Actively coughing, no respiratory distress, not tachypneic, no tripod positioning and no use of accessory muscles Auscultation: vesicular breath sounds on the left Cardio Rate: regular rate Rhythm: regular rhythm Heart sounds: normal S1 and S2 Skin General skin exam: no rashes or lesions noted Neuro General: patient oriented x3 Extrem General: Yes normal to inspection and Yes no clubbing, cyanosis or edema Assessment & Plan Assessment & Plan (1) URI (upper respiratory infection): Code(s): J06.9 - Acute upper respiratory infection, unspecified Qualifiers: URI type: unspecified URI Qualified Code(s): J06.9 - Acute upper respiratory infection, unspecified Plan: Vital signs are stable, patient well-appearing, physical exam remarkable for vesicular lung sounds on the left side, we will get a chest x-ray. I sent a prednisone taper to her pharmacy as she just finished a 5 day burst for back pa in. Also I sent a albuterol inhaler to her pharmacy. Also tested for flu COVID and RSV. Plan See above Orders: Orders XR chest 2V Today R05.9 - Cough, unspecified SARS-CoV2/FLU/RSV Today J06.9 - Acute upper respiratory infection, unspecified Medications: New albuterol sulfate 90 mcg/actuation 2 puffs inhalation Q6H PRN 8.5 grams 0RF shortness of breath or wheezing or cough prednisone On days 1-3, take 2 tablets with breakfast. On days 4-6 take 1 tablet with breakfast 20 mg PO DAILY 9 tabs 0RF Coding Level of Care Code New Pt Level 4 (39357) Diagnoses Upper respiratory tract infection, unspecified type J06.9 URI type: unspecified URI
== END 2024-01-02 11:32 | disposition home or self-care (01) ==
PROVIDERS: PCP Internal Medicine; Visit Provider Physician Assistant
DX: J06.9 Acute upper respiratory infection, unspecified (principal)

== ENCOUNTER 2024-01-02 08:14 | Outpatient (REF) | payer BC, SELFPAY ==
--- NOTE | ~2024-01-02 | XR_ITS ---
EXAMINATION: XR CHEST CLINICAL INFORMATION: Cough, unspecified COMPARISON: July 03, 2022. TECHNIQUE: 2 views of the chest were obtained. FINDINGS: No airspace consolidation or pneumothorax seen. Mild biapical pleural thickening unchanged. Hilar regions and pulmonary vascularity unremarkable. The pleural surfaces appear clear. 6 to 7 mm nodular opacity projects at the peripheral right upper lobe level. Thoracic spondylitic changes again observed. S shaped thoracolumbar scoliosis again seen. Postfusion changes at the cervical level. XR/XR chest 2V IMPRESSION: No evidence for focal infiltrate. Nodular density projecting at the peripheral right upper lobe level. CT evaluation of the chest suggested toward further clarification. Electronically signed by: Gasper Magaña MD 01/02/2024 11:13 AM [facility]
== END 2024-01-02 08:15 | disposition home or self-care (01) ==
LOC: HO.HMGCX 08:14
PROVIDERS: PCP Internal Medicine; Visit Provider Physician Assistant
DX: R05.9 Cough, unspecified (principal)
CPT/HCPCS: 71046

== ENCOUNTER 2024-01-02 09:05 | Outpatient (REF) | payer BC, SELFPAY ==
[2024-01-02 12:44] LABS: Influenza A PCR NEGATIVE (Negative); Influenza B PCR NEGATIVE (Negative); Resp Syncy Virus RNA Qual PCR NEGATIVE (Negative); SARS COV2 PCR INHOUSE NEGATIVE (Negative)
== END 2024-01-02 09:06 | disposition home or self-care (01) ==
LOC: HO.LAB 09:05
PROVIDERS: Visit Provider Physician Assistant
DX: J06.9 Acute upper respiratory infection, unspecified (principal)
CPT/HCPCS: 0241U

== ENCOUNTER 2024-06-16 08:11 | Outpatient (AMB) | payer BC, SELFPAY ==
--- OUTSIDE RECORDS SUMMARY | 2024-06-16 08:24 | XMS_ITS | Clinical Summary ---
Author Organization [address] Address [address] [place] [id number] Phone Care Team Providers Care Band Attacher Name Role Phone Yfn Arenas MD Primary Care Provider [phone] Allergies Active Allergy Reactions Criticality Noted Date Comments Ampicillin Wheezing 07/03/2006 Cefuroxime Axetil 01/10/2005 Cephalexin Monohydrate 01/10/2005 Clindamycin Hcl 09/14/2009 Other Reaction(s): OTHER INFECTION IN BODY-VARIUS AREAS Erythromycin Stearate 01/10/2005 Meperidine Hcl 01/10/2005 Metoclopramide Hcl High 12/07/2008 Other Reaction(s): OTHER LOCK JAW Morphine Sulfate Swelling Low 09/13/2011 Caused edema legs Sulfamethoxazole-Trimethoprim High 2008 Other Reaction(s): Numbness, tingling or swelling of the lips, tongue or mouth Medications atorvastatin (LIPITOR) 10 mg tablet Take 1 Tablet by mouth daily for 360 days. 4 12/06/19 25 Active pantoprazole (PROTONIX) 40 mg EC tablet Take 1 tablet (40 mg total) by mouth 1 (one) time each day. Active docusate sodium (COLACE) 100 mg capsule Take 1 capsule (100 mg total) by mouth 1 (one) time each day. 4 Active loratadine (CLARITIN) 10 mg tablet Take 1 tablet (10 mg total) by mouth 1 (one) time each day. 4 Active fluticasone propionate (FLONASE) 50 mcg/actuation nasal spray Administer 2 sprays into affected nostril(s) 1 (one) time each day. 4 Active albuterol HFA (PROAIR HFA ; PROVENTIL HFA ; VENTOLIN HFA) 90 mcg/actuation inhaler Inhale 2 Puffs into the lungs every 4 hours as needed for Cough or Wheezing. 3 Active albuterol 2.5 mg /3 mL (0.083 %) nebulizer solution TAKE 1 VIAL BY NEBULIZATION EVERY 4 HOURS NEEDED FOR WHEEZING, SHORTNESS OF BREATH OR COUGH. Active butalbital-acet aminophen-caffe ine (ESGIC) 50-325-40 mg per capsule Take 1 capsule by mouth every 4 (four) hours. 2 Active carisoprodoL (SOMA) 350 mg tablet Take 1 tablet (350 mg total) by mouth 3 (three) times a day if needed. Active morphine (MS CONTIN) 30 mg 12 hr tablet Take 30 mg by mouth every 8 hours for 28 days. 1 Active promethazine (PHENERGAN) 25 mg tablet Take 1 tablet by mouth 3 times daily for 28 days. 1 Active pregabalin (LYRICA) 75 mg capsule Take 1 capsule (75 mg total) by mouth 2 (two) times a day. Active CHOLECALCIFEROL , VITAMIN D3, ORAL Take 5,000 Units by mouth 1 (one) time each day. Active multivit-min/ir on/FA/vit K/lut (MULTIVITAMIN WOMEN 50 PLUS ORAL) Take by mouth. Activ e furosemide (LASIX) 20 mg tablet TAKE 1 TABLET BY MOUTH EVERY DAY 90 tablet 5 Active Active Problems Problem Noted Date Diagnosed Date Lung nodule 01/10/2024 Anxiety 01/10/2024 Foot pain, left 01/10/2024 Menstrual migraine 01/10/2024 Nausea and vomiting 01/10/2024 Neck pain 01/10/2024 Pain in thoracic spine 01/10/2024 Dysphagia 01/09/2024 Epigastric pain 01/09/2024 Umbilical hernia 01/09/2024 Abdominal wall hernia 01/09/2024 Right lower quadrant pain 01/09/2024 Tubular adenoma of colon 01/09/2024 Overview (01/09/2024): X3 removed at [facility] in 2019 Drug induced constipation 01/09/2024 Postmenopausal bleeding 10/03/2021 Tricuspid valve regurgitation 02/03/2020 Overview (01/09/2024): Tricuspid valve regurgitation Hyperlipidemia 06/03/2019 Mitral valve prolapse 12/02/2018 GERD (gastroesophageal reflux disease) 3 Radiculitis, lumbosacral 01/03/2010 Radiculitis, cervical 01/03/2010 Urinary retention 12/13/2009 Overview (01/09/2024): Sees Dr. Kim Brown MD [phone] Chronic pain 07/27/2009 Post laminectomy syndrome 07/27/2009 UPJ (ureteropelvic junction) obstruction 008 Overview (01/09/2024): Surgical decompression Lumbago 01/10/2005 Overview (01/09/2024): Disk surgery 1985, 1987. Spinal fusion 1995. Hardware removal 1996. Spinal stimulator inserted and removed 2004. Multiple steering injections. Raynaud's syndrome 01/10/2005 Palpitations 01/10/2005 Asthma 01/10/2005 Immunizations Name Administration Dates Next Due Influenza Quadravalent, MDCK , 0.5ml, preservative free (Flucelvax) 6mo and older 11/29/2020,11/04/2019 Influenza Quadravalent, MDCK , 0.5ml, with preservative (Flucelvax) 6mo and older 12/21/2016 Influenza trivalent, 0.5mL, preservative free (Fluarix; FluLaval; Fluzone) ages 6mo and older (Afluria) 3 years and older 12/11/2023,02/28/2015,12/14/2013,11/12,03/13/2010 Influenza, Unspecified 12/19/2017 MMR, measles mumps and rubel la Live (Priorix; M-M-R II) 12mo and older 08/04/2003 Moderna SARS-CoV-2 COVID-19, mRNA, LNP-S, preservative free 06/26/2020 Pneumococcal polysaccharide 23 valent (Pneumovax 23) 2yo and older 12/21/2016,09/14/2006 Td Tetanus diptheria (Tdvax) 7yo and older 11/04/2019 Tdap Tetanus diptheria acell ular pertussis (Boostrix; Adacel) 7yo and older 10/24/2008 Zoster recombinant (Shingrix ) 19yo and older 03/07/2020,01/05/2020 Surgical History Surgery Date Site/Laterality Comments SECTION PROCEDURE: HISTORICAL DELIVERY; COMMENT: 3 OTHER SURGICAL HISTORY PROCEDURE: ---- OTHER ----; COMMENT: r ovary out BACK SURGERY PROCEDURE: HISTORICAL BACK SURGERY; COMMENT: 7 back operations OTHER SURGICAL HISTORY PROCEDURE: ---- OTHER ----; COMMENT: tanvir upj ostruction WRIST SURGERY PROCEDURE: HISTORICAL WRIST SURGERY; COMMENT: l wrist ganglion VENTRAL HERNIA REPAIR 06/13/2010 PROCEDURE: HISTORICAL VTRL WALL HERNIA RE; COMMENT: Dr Lowry - right spigellan hernia repair ESOPHAGOGASTRODUODENOSCOPY 07/25/2012 PROCEDURE: SD EGD TRANSORAL BIOPSY SINGLE/MULTIPLE; COMMENT: normal with normal duodenal bx. OTHER SURGICAL HISTORY 05/13/12 PROCEDURE: LAPAROSCOPY PROCEDURE NEC; COMMENT: exploratory for pain, Dr. Partida, no abnormality NECK SURGERY PROCEDURE: HISTORICAL NECK SURGERY; COMMENT: spinal fusion COLONOSCOPY PROCEDURE: HISTORICAL COLONOSCOPY COLONOSCOPY PROCEDURE: HISTORICAL COLONOSCOPY; COMMENT: Performed at [facility] in 2019-3 tubular adenomas removed Medical History Medical History Date Comments Lumbago 01/10/2005 DX:Lumbago Raynaud's syndrome 01/10/2005 DX:Raynaud's syndrome Palpitations 01/10/2005 DX:Palpitations Unspecified asthma(493.90) 01/10/2005 DX:Un specified asthma(493.90) UPJ (ureteropelvic junction) obstruction 07/31/2007 DX:UPJ (ureteropelvic juncti on) obstruction; COMMENT: Surgical decompression GERD (gastroesophageal reflux disease) 06/19/2012 DX:GERD (gastroesophageal reflux disease) Dysphagia DX:Dysphagia Epigastric pain DX:Epigastric pa in Umbilical hernia DX:Umbilical he rnia Abdominal wall hernia DX:Abdomin al wall hernia Right lower quadrant pain DX:Rig ht lower quadrant pain Drug induced constipation DX:Mikey g induced constipation Tubular adenoma of colon DX:Tubu lar adenoma of colon; COMMENT: X3 removed at [facility] in 2019 Cervical spondylosis without myelopathy DX:Cervical spondylosis with out myelopathy Hyperlipidemia 06/03/2019 Anxiety 01/10/2024 Family History Medical History Relation Name Comments Other: COPD Father Other: Lymphoma Father Heart attack Mother CHF Hypertension Mother Breast cancer Neg Hx Colon cancer Neg Hx Prostate cancer Neg Hx Relation Name Status Comments Father Mother Alive Social History Tobacco Use Types Packs/Day Years Used Date Smoking Tobacco: Never Smokeless Tobacco: Never Tobacco Cessation:Counseling Given: Not Answered Alcohol Use Standard Drinks/Week Comments No 0 (1 standard drink = 0.6 oz pur e alcohol) Housing Instability Answer Date Recorde d Are you worried that in the next 2 months you may not have stable housing? No 01/10/2024 Food Access & Nutrition Answer Date Rec orded Do you have access to a vari ety of food including fruits and vegetables? No 01/10/2024 Health Literacy Answer Date Recorded How often do you need to hav e someone help you when you read instructions, pamphlets, or other written material from your doctor or pharmacy? Never 01/10/2024 Caregiver: How often do you need to have someone help you when you read instructions, pamphlets, or other written material from your doctor or pharmacy? Not on file 01/10/2024 Financial Risk Answer Date Recorded How hard is it for you to pa y for the very basics like food, housing, medical care, and air conditioning / heating? Not very hard 01/10/2024 Transportation Answer Date Recorded Has the lack of transportati on kept you from meetings, work, or from getting things needed for daily living? No Has the lack of transportati on kept you from medical appointments or from getting medications? No 01/10/2024 Social Isolation Answer Date Recorded How often do you feel lonely or isolated from th ose around you? Never 01/10/2024 Food Risk Answer Date Recorded Within the past 12 months we worried whether our food would run out before we got money to buy more. Never true 01/10/2024 Within the past 12 months th e food we bought just didn't last and we didn't have money to get more. Never true 01/10/2024 Dependent Care Answer Date Recorded Do you need help finding or paying for care for your loved ones. For example, attendant children's institution or elderly care for an older adult? No 01/10/2024 Education Answer Date Recorded Do you think completing more education or training, like finishing a GED, going to college, or learning a trade, would be helpful for you? No 01/10/2024 Employment and Income Answer Date Recor ded During the last four weeks, have you been actively looking for work? No 01/10/2024 Living Situation Answer Date Recorded What is your living situation? 1 03/11/2023 Comments Unknown Sex and Gender Information Value Date Recorded Sex Assigned at Female 01/23/2024 11:57 AM EST Legal Sex Female 9:45 AM EST Gender Identity Female 01/23/2024 11:57 AM EST Sexual Orientation Straight 01/23/2024 11 :57 AM EST Obstetrics History Last Filed Vital Signs Vital Sign Reading Time Taken Comments Blood Pressure 107/70 01/10/2024 10:36 AM EST Pulse 70 01/10/2024 10:36 AM EST Temperature 36.5 ??C (97.7 ??F) 01/10/2024 10:[address] Respiratory Rate 16 01/10/2024 10:36 AM EST Oxygen Saturation 97% 01/10/2024 10:36 AM EST Inhaled Oxygen Concentration - - Weight 72.8 kg (160 lb 9.6 oz) 01/10/2024 10:36 AM EST Height 167.6 cm (5' 6 ) 01/10/2024 10:36 AM EST Body Mass Index 25.92 01/10/2024 10:36 AM EST Plan of Treatment Upcoming Encounters Date Type Department Care Team (Late st Contact Info) Description 07/10/2024 11:00 AM EDT Office Visit Adult Medicine [facility] [address] [place] [phone] Yfn Arenas MD [address] [place] [phone] Health Maintenance Due Date Last Done Comments Breast Cancer Screening 1965 Hepatitis B Vaccines (1 of 3 - 19+ 3-dose series) 1984 Pneumococcal Vaccine: 50+ Years (2 of 2 - PCV) 12/21/2017 12/21/2016, 09/14/2006 Pneumococcal Vaccine: Pediatrics (0 to 5 Years) and At-Risk Patients (6 to 64 Years) (2 of 2 - PCV) 12/21/2017 12/21/2016, 09/14/2006 HIV Screening 01/27/2022 COVID-19 Vaccine ( season) 2023 11/26/2022, 03/27/2022, 05/30/2021, Additional history exists Depression Screening 01/09/2025 01/10/2024 Social Influencers of Health Screening 01/09/2025 01/10/2024 Cervical Cancer Screening: HPV 09/08/2026 09/08/2021 Cholesterol Screening (Lipid Panel) 12/17/2028 12/18/2023, 12/18/2023 DTaP,Tdap,and Td Vaccines (3 - Td or Tdap) 11/03/2029 11/04/2019, 10/24/2008 Colorectal Cancer Screening: Colonoscopy 07/20/2032 07/20/2022 MMR Vaccines Aged Out 08/04/2003 No longer eligi ble based on patient's age to complete this topic Hepatitis C Screening Completed 02/28/2015 Zoster Vaccines Completed 03/07/2020, 01/05/2020 Influenza Vaccine Completed 12/11/2023, , 11/29/2020, Additional history exists HIB Vaccines Aged Out No longer eligi ble based on patient's age to complete this topic HPV Vaccines Aged Out No longer eligi ble based on patient's age to complete this topic Hepatitis A Vaccines Aged Out No long er eligible based on patient's age to complete this topic IPV Vaccines Aged Out No longer eligi ble based on patient's age to complete this topic Meningococcal ACWY Vaccine Aged Out N o longer eligible based on patient's age to complete this topic Meningococcal B Vaccine Aged Out No l onger eligible based on patient's age to complete this topic RSV Immunization Patients Under 20 months Aged Out No longer eligible based on patient's age to complete this topic Varicella Vaccines Aged Out No longer eligible based on patient's age to complete this topic Procedures Procedure Name Priority Date/Time Associated Diagnosis Comments LIPID PANEL Routine 12/18/2023 COLONOSCOPY Routine 07/20/2022 HPV Routine 09/08/2021 HEPATITIS C SCREENING Routine 02/28/2015 from Last 3 Months or Most Recently Relevant to Health Maintenance Results * (ABNORMAL) Lipid panel (12/18/2023) Pathologist [facility] LDL/HDL Ratio 3 0 - 4 Triglycerides 79 0 - 150 mg/dL Cholesterol 211(A) 0 - 200 mg/dL HDL 86 >=40 mg/dL LDL Cholesterol 110(A) 0 - 100 mg/dL Blood Venous blood specimen / Unknown [facility] Provider LAB BLOOD ORDERABLES Emmy l Result * Colonoscopy (07/20/2022) Pathologist [facility] Colonoscopy No Interpretation , Abstracted Anatomical Region Laterality Modality Other [facility] Provider HEALTH MAINTENANCE Final Result * Cervical Cancer Screening: HPV (09/08/2021) Pathologist [facility] Cervical Cancer Screening: HPV Negative, Abstracted [facility] Provider HEALTH MAINTENANCE Final Result * Hepatitis C Screening (02/28/2015) Pathologist [facility] Hepatitis C Screening Abstracted [facility] Provider HEALTH MAINTENANCE Final Result from Last 3 Months or Most Recently Relevant to Health Maintenance Insurance [facility] Care Teams Band Attacher Relationship Specialty Start Date End Date Yfn Arenas MD [address] [place] [phone] PCP - General Internal Medicine 01/14/24
--- OUTSIDE RECORDS SUMMARY | 2024-06-16 08:24 | XMS_ITS | Data Portability ---
Author Organization [facility], [facility] Address [address] [place] [id number] Care Team Providers Care Combination Building Inspector Name Role Phone DONAL AL Primary Care Provider Assessment No assessment recorded. Plan of Treatment Reminders Order Date Submit Date Provider Last Modified By Organization Details Last Modified Time Details Appointments None record ed. Lab None record ed. Referral None record ed. Procedures None record ed. Surgeries None record ed. Imaging None record ed. Medication Orders None record ed. Patient TargetsNo targets recorded. Patient InstructionsNo instructions recorded. Reason for Referral None Reported. Results Created Date Observation Date Name Description Value Unit Range Abnormal Flag Note LastModifiedBy Organization Detail LastModifiedTime 11/13/19 24 08/09/2023 nerve condu ction study /EMG (PROC ) No observ ation record ed. [email or web address] Not Available 2023 10:30:38 11/18/19 24 10/07/2023 MRI, thora cic spine , w/o contr ast No observ ation record ed. [email or web address] Not Available 2023 13:03:02 11/18/19 24 10/10/2023 MRI, cervi nathen plexu s, w/o contr ast No observ ation record ed. [email or web address] Not Available 2023 13:03:53 11/18/19 24 09/29/2022 MRI, lumba r spine , w/o contr ast No observ ation record ed. [email or web address] Not Available 2023 13:07:46 Result Notes None recorded. Procedures Surgical History Date Name Laterality Status Provider Name and Address Organization Details Recorded Time 0 Appendectomy completed Torrie Mendiola [facility] 11/18/2023 13:11:43 Imaging Results Imaging Date Name Status LastModified by Organiz ation Details LastModified Time 08/09/2023 nerve conduction study/EMG (PROC) completed [email or web address] Information not available 11/13/2023 10:30:38 10/07/2023 MRI, thoracic spine, w/o contrast completed [email or web address] Information not available 11/18/2023 13:03:02 10/10/2023 MRI, cervical plexus, w/o contrast completed Information not available 11/18/2023 13:03:53 09/29/2022 MRI, lumbar spine, w/o contrast completed [email or web address] Information not available 11/18/2023 13:07:46 Procedure Notes None recorded. Medical Equipment None Reported. Allergies Allergen ID Allergen Name Allergen Category Reaction Reaction Severity Criticality Documentation Date Start Date Code Code System Note Provider Name and Address Organization Details Recorded Time 960779 Product containin g penicilli n (product) medicatio n Not available Not available Not available 11/18/2023 89903 8001 SNOMED Torrie Tutty [place], [facility] 13:20:15 899589 Reglan medicatio n Not available Not available Not available 11/18/2023 9230 RxNorm Torrie Tutty [facility] 13:37:36 144074 Demerol medicatio n Not available Not available Not available 11/18/2023 11404 1 RxNorm Torrie Tutty [facility] 13:37:54 644549 azithromy rogelio medicatio n Not available Not available Not available 11/18/2023 44873 RxNorm Torrie Tutty [place], [facility] 4 13:38:09 352080 Keflex medicatio n Not available Not available Not available 11/18/2023 39207 7 RxNorm Torrie Tutty [place], [facility] 13:38:20 969457 Ceftin medicatio n Not available Not available Not available 11/18/2023 94808 6 RxNorm Torrie Tutty null, [facility] 4 13:39:01 Medications Name Sig Start Date Stop Date Status Note LastModified by Organization Details LastModified Time carisoprodol 350 mg tablet TAKE 1 TABLET BY MOUTH THREE TIMES DAILY NEEDED active Not Available Not Available No t Available clonidine HCl 0.1 mg tablet TAKE 1 TABLET BY MOUTH EVERY NIGHT active Not Available Not Available No t Available prednisone 10 mg tablet active Not Available Not Available Not Available albuterol sulfate 2.5 mg/3 mL (0.083 %) solution for nebulization TAKE 1 VIAL BY NEBULIZATIO N EVERY 4 HOURS NEEDED FOR WHEEZING, SHORTNESS OF BREATH OR COUGH. active Not Available Not Available No t Available atorvastatin 10 mg tablet TAKE 1 TABLET BY MOUTH DAILY active Not Available Not Available Not Available ciprofloxaci n 500 mg tablet TAKE 1 TABLET BY MOUTH TWICE DAILY active Not Available Not Available No t Available morphine ER 30 mg tablet,exten ded release TAKE 1 TABLET BY MOUTH EVERY 8 HOURS active Not Available Not Available No t Available butalbital-a cetaminophen -caffeine 50 mg-325 mg-40 mg tablet TAKE 1 TABLET BY MOUTH TWICE DAILY NEEDED active Not Available Not Available No t Available oxycodone 15 mg tablet TAKE 1 TABLET BY MOUTH FOUR TIMES DAILY active Not Available Not Available Not Available lorazepam 0.5 mg tablet TAKE 1 TABLET BY MOUTH TWICE DAILY FOR 7 DAYS NEEDED active Not Available Not Available No t Available pantoprazole 40 mg tablet,delay ed release TAKE 1 TABLET BY MOUTH EVERY DAY active Not Available Not Available No t Available lidocaine 5 % topical patch APPLY 1 TO 3 PATCHES DAILY 12 HOURS ON AND 12 HOURS OFF active Not Available Not Available No t Available promethazine 25 mg tablet TAKE 1 TABLET BY MOUTH THREE TIMES DAILY NEEDED active Not Available Not Available No t Available furosemide 20 mg tablet TAKE 1 TABLET BY MOUTH EVERY DAY active Not Available Not Available No t Available ibuprofen 600 mg tablet TAKE 1 TABLET BY MOUTH THREE TIMES DAILY NEEDED active Not Available Not Available No t Available albuterol sulfate HFA 90 mcg/actuatio n aerosol inhaler INHALE 2 PUFFS INTO THE LUNGS EVERY 4 HOURS NEEDED FOR COUGH OR WHEEZING. active Not Available Not Available No t Available fluticasone propionate 50 mcg/actuatio n nasal spray,suspen greer SHAKE LIQUID AND USE 2 SPRAYS IN EACH NOSTRIL DAILY active Not Available Not Available No t Available loratadine 10 mg tablet TAKE 1 TABLET BY MOUTH DAILY active Not Available Not Available Not Available pregabalin 75 mg capsule TAKE 1 CAPSULE BY MOUTH TWICE DAILY active Not Available Not Available No t Available pregabalin 100 mg capsule TAKE 1 CAPSULE BY MOUTH TWICE DAILY active Not Available Not Available No t Available lidocaine (PF) 20 mg/mL (2 %) injection solution INJECT 10ML DIRECTED FOR BLADDER INSTILLATIO N active Not Available Not Available No t Available naloxone 4 mg/actuation nasal spray USE 1 SPRAY IN NOSTRIL NEEDED SIGNS OF OPIOID OVERDOSE active Not Available Not Available No t Available Emgality Pen 120 mg/mL subcutaneous pen injector ADMINISTER 1 SYRINGE SUBCUTANEOU S EVERY 30 DAYS active Not Available Not Available No t Available Vitals Date Recorded Pain severity - 0-10 verbal numeric rating [Score] - Reported Body weight Body mass index (BMI) Body height Provider Name and Address Organization Details Last Updated DateTime 11/18/2023 9 11054.78 g 25.8 kg/m2 167.64 cm Torrie Mendiola [facility] 11/18/2023 13:19:59 Social History Question Answer Notes LastModified by [employer] Details LastModified Time Tobacco Smoking Status Never Smoker Torrie Mendiola [facility] 11/18/2023 13:11:48 What Is Your Level Of Alcohol Consumption? Occasional Information not available 11/18/2023 Are You Deaf Or Do You Have Serious Difficulty Hearing? 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 Bilateral Information not available 11/18/2023 How Much Tobacco Do You Smoke? No Information not available 11/18/2023 Sex: Unknown Functional Status Question Answer Note LastModified by [employer] Details LastModified Time What is your exercise level? Occasional Information not available 11/18/2023 Mental Status None recorded. Family History Nothing Reported. Medical History Condition Response Acid Reflux (GERD) Y Rheumatoid Arthritis Y Asthma/COPD Y Arthritis Y Back Pain Y Gynecological HistoryNo gynecological history recorded. Obstetrics History GPAL:G 0 P 0 0 0 0 Past Encounters Encounter ID Performer Location Encounter Start Date Encounter Closed Date Diagnosis/Indication Diagnosis SNOMED-CT Code Diagnosis ICD10 Code Diagnosis Note [id number] AMANDA GARNICA PA-C [address] [place] [address] 11/18/2023 12:55:10 11/18/2023 14:11:20 Cervical spondylosis [id number] M47.812 We had a very nice discussion today regarding her symptoms, MRI findings, and treatment options available. I think her numbness and tingling into her elbow and pinky finger is likely due to a cubital tunnel issue. She does have some significan t spondylosi s as well as a mild degenerati ve scoliosis in her spine that is leading to significan t neck and back pain. She has been working with a physiatris t for some time regarding these issues. I do not see a structural reason in her spine for her extremity pains. I would not recommend a surgical interventi on at this time. I have recommende d that she continue to work with her physiatris t utilizing antispasti c medication s, steroid injections , and physical therapy to try to alleviate her symptoms as best she can. I have recommende d that she follow-up with a hand surgeon to further workup the possible cubital tunnel. She expressed understand ing. All questions answered to her satisfacti on. Total visit time was 48 minutes in length including face-to-fa ce and non-face-t o-face time. Health Concerns Section Related Observation LastModified by Organization Detai ls LastModified Time None Recorded Concern Status LastModified by Organization Details LastModified Time None Recorded Advance Directives Directive None Recorded Payers Encounter Date Sequence Insurance Name Policy Number Policy Hoang Covered Member ID Hoang Member ID Guarantor Name 11/18/2023 1 [employer] [employer] ([employer] Gabino Villegas [id number] Darlin Nelly Notes Date Note Type Note Provider Name and Address Organization Details Recorded Time 11/18/2023 text/html Darlin comes in t abel for the evaluation of her neck and upper extremity symptoms. She has multiple complaints including mid and lower back and leg pain but we concentrated mostly on her cervical spine at today's visit. She had a fall on September 01 after she felt her back and leg gave out on her. She has been having issues with her left knee and has been using a crutch. As she felt she landed hard on her elbow and has since had some numbness and tingling into her pinky and ring finger as well as some pain that radiates from her fingers up through her elbow and into her tricep. She at baseline has significant neck pain as well as headaches. She has undergone previously a cervical fusion from C5-7. The C7-T1 level appears to be intact with no foraminal narrowing. She does have some degenerative changes above her fusion at C3-4 and C4-5 but no significant neuroforaminal narrowing or central canal narrowing. I did review her thoracic and lumbar MRIs as well. Her thoracic MRI shows no central or foraminal narrowing to contribute to cord or nerve root compression. Her lumbar MRI is notable for a previous L3-5 laminectomy and fusion. She did have the hardware removed in the past. She has some adjacent segment breakdown at the L2-3 level that leads to some mild spinal stenosis but no significant foraminal narrowing. AMANDA GARNICA PA-C [address] [place] [address], [phone], [facility] 11/19/2023 09:44:29 OBGyn Episode No OBEpisode recorded.
--- NOTE | 2024-06-16 08:57 | AM.OFFWIN_ITS ---
Intake Vital Signs 06/16/24 09:01 BP 118/72 Blood Pressure Location Lt brachial Position Sitting Pulse 78 Pulse Source Pulse Oximeter Temp 97.9 F Temp Source Oral Pulse Oximetry (%) 98 Oxygen Delivery Method Room Air Intake Visit Reasons: EP ?sinus infection Intake Note: Patient here for sinus pressure, back of head pressure, asthma flare up that has been present for 2 weeks. Patient Tobacco Use Status: Never used Tobacco Allergies ampicillin [Ampicillin] Allergy (Severe, Verified 06/16/24 09:00) ANAPHYLAXIS TO TOTACILLIN azithromycin [From ZITHROMAX] Allergy (Severe, Verified 06/16/24 09:00) ANAPHYLAXIS erythromycin base [ERYTHROMYCIN BASE] Allergy (Unknown, Verified 06/16/24 09:00) UNKNOWN clindamycin Allergy (Verified 06/16/24 09:00) Hives ciprofloxacin [From CIPRO] Adverse Reaction (Unknown, Verified 06/16/24 09:00) NAUSEA From DEMEROL Allergy (Severe, Uncoded 06/16/24 09:00) ANAPHYLAXIS From CIPRO Adverse Reaction (Unknown, Uncoded 06/16/24 09:00) NAUSEA From REGLAN Adverse Reaction (Unknown, Uncoded 06/16/24 09:00) LOCK JAW HPI HPI Comments History of Present Illness Details History - The patient is a 58-year-old female pr esenting with severe sinus pain and infection of two weeks' duration. - Persistent sinus discomfort has not re solved with loratadine and Flonase; substantial pain reported radiating to the neck and head, causing notable d iscomfort. - Shortness of breath noted, more intens e in the morning, correlating with sinus swelling. - No fever has been reported. - Previous sensitivity to inhaled steroi ds with side effects of thrush. - Known allergy to Augmentin; Levofloxac in (Levaquin) has been used successfully in the past. - Upcoming surgery for lipoma removal on her arm requires careful consideration in planning further treatment to avoid interference with postoperative healing. Physical Exam General: Cooperative, healthy appearing, comfortable and no acute distress Orientation/consciousness: Patient oriented x3 Limitations: No limitations Head: Normal to inspection Ears: Hearing grossly normal bilaterally, external ears normal and TM's normal bilaterally Nose: Normal external nose present, Normal nares present and No nasal discharge present Face and sinus: Normal facial exam, TTP ethmoid and maxillary sinuses bilaterally Mouth: Normal oral and palatal mucosa present and moist mucous membranes Throat: Yes tonsils normal, Yes uvula midline. Posterior oropharynx erythema Eyes: Appearance normal, both eyes and all related structures Neck: Normal visual inspection, but patient reports neck pain Respiratory: Clear to auscultation bilaterally. Normal respiratory effort, able to speak in complete sentences, Actively coughing, no respiratory distress, not tachypneic, no tripod positioning and no use of accessory muscles Cardiovascular: Regular rate and rhythm. Normal S1 and S2 Skin: No rashes or lesions noted Neuro: Patient oriented x3 Extremities: Normal to inspection and Yes no clubbing, cyanosis or edema [facility] Social History Patient Tobacco Use Status: Never used Tobacco Review of Systems Const All systems reviewed & are unremarkable except as noted in HPI and below Physical Exam Vital Signs: Last Vital Signs Temp 97.9 F 06/16/24 09:01 Pulse 78 06/16/24 09:01 BP 118/72 06/16/24 09:01 Pulse Ox 98 06/16/24 09:01 Oxygen Delivery Method Room Air 06/16/24 09:01 Assessment & Plan Assessment & Plan (1) Acute bacterial sinusitis: Code(s): J01.90 - Acute sinusitis, unspecified; B96.89 - Other specified bacterial agents as the cause of diseases classified elsewhere Plan: VSS, pt well appearing and PE remarkable for global sinus tenderness. I have prescribed Levofloxacin for five days to address the bacterial sinusitis given the resistance of symptoms to initial treatment strategies. We avoided an oral steroid in light of the scheduled surgery to ensure proper postoperative healing. The continuation of Flonase is recommended with education on proper use and effective administration. Loratadine and supportive measures, such as steam inhalation, should be maintained for symptomatic relief. This comprehensive approach aims to alleviate the patient's symptoms and prepare for successful surgical intervention. Patient was informed and verbally consented to the use of an ambient scribe for clinic note documentation during this visit Medications: New levofloxacin 750 mg PO Q24H 5 tabs 0RF Coding Level of Care Code New Pt Level 3 (91237) Diagnoses Acute bacterial sinusitis J01.90; B96.89
[2024-06-16 09:01] VITALS: BP 118/72; PULSE 78; TEMP 36.6; O2SAT 98
== END 2024-06-16 09:58 | disposition home or self-care (01) ==
PROVIDERS: PCP Internal Medicine; Visit Provider Physician Assistant
DX: J01.90 Acute sinusitis, unspecified (principal); B96.89 Other specified bacterial agents as the cause of diseases classified elsewhere

== ENCOUNTER → 2024-06-16 08:11 | Outpatient (BNVA) | payer BC, SELFPAY | PROVIDERS: PCP Internal Medicine; Visit Provider Physician Assistant | DX: Z13.89 Encounter for screening for other disorder (principal) ==